=== PATIENT | female | born 1980 | race Caucasian/White ===

== ENCOUNTER 2016-03-01 17:09 | Inpatient (IN) | payer BC ==
[~2016-03-01] VITALS: Ht 170.2 cm; Wt 95.5 kg
[2016-03-01 17:51] LABS: BASOPHILS 0.3 % (0.0-2.0); EOSINOPHILS 0.4 % (0-7); HEMATOCRIT 42.9 % (36.0-48.0); HEMOGLOBIN 14.6 g/dL (12-16); IMMATURE GRANULOCYTES 0.1 % (0-5); LYMPHOCYTES 14.9 % (15-50); MCH 30.5 pg (26.0-34.0); MCV 89.6 fL (80.0-100.0); MONOCYTES 11.3 % (2-11); PLATELET COUNT 149 10x3/uL (130-400); RBC 4.79 10x6/uL (4.00-5.40); RDW 12.8 % (11.5-14.5); WBC 6.8 10x3/uL (4.8-10.8)
[2016-03-01 18:00] LABS: BILIRUBIN - TOTAL 1.62 mg/dL (0.2-1.3); CALCIUM 9.2 mg/dL (8.5-10.1); CARBON DIOXIDE 27.9 mmol/L (21.0-32.0); CREATININE - SERUM 1.1 mg/dL (0.6-1.3); POTASSIUM - SERUM 3.9 mmol/L (3.5-5.1); PROTEIN - SERUM 7.5 g/dL (6.4-8.2)
[2016-03-01 18:09] LABS: HCG SERUM NEGATIVE (NEGATIVE)
[2016-03-01 18:11] LABS: APPEARANCE CLEAR (CLEAR); BILIRUBIN NEGATIVE (NEGATIVE); COLOR DK YELLOW (YELLOW); GLUCOSE NEGATIVE (NEGATIVE); KETONE NEGATIVE (NEGATIVE); LEUKOCYTE ESTERASE NEGATIVE (NEGATIVE); NITRITE NEGATIVE (NEGATIVE); PROTEIN TRACE mg/dL (NEGATIVE); SPECIFIC GRAVITY 1.015 (1.005-1.020); UROBILINOGEN NORMAL (NORMAL)
[2016-03-01 23:07] VITALS: BP 112/67; Ht 170.2 cm; Wt 95.5 kg
--- NOTE | 2016-03-01 23:44 | NUR ---
RESTING WITH EYES CLOSED, RESP WITH EASE, IV INFUSING WITHOUT DIFFICULTY, VISITOR IN ROOM, CL IN REACH
[2016-03-02 04:00] VITALS: BP 107/69
[2016-03-02 05:51] LABS: BASOPHILS 0.2 % (0.0-2.0); EOSINOPHILS 0.6 % (0-7); HEMATOCRIT 38.7 % (36.0-48.0); IMMATURE GRANULOCYTES 0.2 % (0-5); LYMPHOCYTES 18.3 % (15-50); MCH 30.3 pg (26.0-34.0); MCHC 33.6 g/dL (31.0-37.0); MCV 90.2 fL (80.0-100.0); MEAN PLATELET VOLUME 11.6 fL (7.4-10.4); MONOCYTES 12.6 % (2-11); NEUTROPHILS 68.1 % (40-80); PLATELET COUNT 141 10x3/uL (130-400); RBC 4.29 10x6/uL (4.00-5.40); WBC 5.1 10x3/uL (4.8-10.8)
[2016-03-02 06:14] LABS: ALBUMIN 3.1 g/dL (3.4-5.0); BILIRUBIN - DIRECT 2.01 mg/dL (0.00-0.30); BILIRUBIN - INDIRECT 1.39 mg/dL (0.00-1.00); BILIRUBIN - TOTAL 3.4 mg/dL (0.2-1.3); CALCIUM 8.3 mg/dL (8.5-10.1); CARBON DIOXIDE 28.4 mmol/L (21.0-32.0); POTASSIUM - SERUM 4.4 mmol/L (3.5-5.1)
--- NOTE | 2016-03-02 08:00 | NUR ---
PT ASSESSMENT COMPLETE NPO FOR OR TODAY WITH DR PATEL FOR LAP CARISSA PROCEEDURE EXPLAINED TO PT AND CONSENTS OBTAINED. PT NPO
[2016-03-02 08:31] VITALS: BP 104/62
--- NOTE | 2016-03-02 09:32 | HP ---
PATIENT: ALY GANN MEDICAL RECORD: [id number] ACCOUNT: [id number] LOCATION:D.[id number] : [birth year] ADMISSION DATE: 03/01/16 HISTORY AND PHYSICAL EXAMINATION DATE OF ADMISSION: 03/02/2016. ADMITTING PHYSICIAN: Magnolia Patel MD CHIEF COMPLAINT: Abdominal pain. HISTORY OF PRESENT ILLNESS: Ms. Gann is a 35-year-old female who was admitted to the ER last night with a 1-day history of acute onset of right upper quadrant and epigastric abdominal pain. The patient developed sharp, stabbing right lower quadrant abdominal pain. The pain has been constant. She describes it as sharp and stabbing. Currently, it is 5/10. The pain has been constant. It fluctuates in intensity. She had a previous episode of similar abdominal pain a couple of weeks ago. She denies having any fever or chills. She had nausea and multiple episodes of vomiting. She denies any hematemesis. She describes dark celine colored urine. She denies any melena or hematochezia. PAST MEDICAL HISTORY: None. PAST SURGICAL HISTORY: times 2. ALLERGIES: MORPHINE. HOME MEDICATIONS: None. SOCIAL HISTORY: She is a former smoker. She drinks alcohol socially. FAMILY HISTORY: She denies any family history of cancer or cardiovascular disease. REVIEW OF SYSTEMS: A 12-point review of systems was obtained. Pertinent positive and negative as per the HPI. PHYSICAL EXAMINATION: VITAL SIGNS: Temperature 98.2, pulse ____, respirations 18, blood pressure 107/69, satting 97% on room air. GENERAL: This is a well-developed and well-nourished female in moderate distress. EYES: Extraocular muscles are intact. Sclerae are anicteric. EARS, NOSE AND THROAT: Mucous membranes dry. Normal dentition. CARDIOVASCULAR: Normal sinus rhythm. PULMONARY: She is clear to auscultation bilaterally. ABDOMEN: Soft and nondistended. She has got focal tenderness in the right lower quadrant with guarding and rebound. No hernia defects. SKIN: Warm and dry with normal turgor. EXTREMITIES: A 2+ pulses. No peripheral edema. EXTREMITIES: She is neurovascularly intact. NEUROLOGIC: She has a GCS of 15 with no focal deficits. LABORATORY DATA: Reviewed. Please see electronic medical record for a full set of laboratory data. Labs are significant for a transaminitis and jaundice. HISTORY AND PHYSICAL [id number] ALY GANN IMAGING: Gallbladder ultrasound images personally reviewed, which showed mild dilatation of the common bile duct as well as multiple shadowing stones. IMPRESSION: A 35-year-old female with choledocholithiasis, jaundice and transaminitis. PLAN: 1. Admit to med/surg Dr. Patel 2. IV fluid resuscitation. 3. N.p.o. 4. IV fluid resuscitation. 5. IV antibiotics. 6. We will consult gastroenterology, Dr. Dawson, for possible ERCP, repeat serial abdominal exams, laparoscopic cholecystectomy during this admission. TRANSINT:[id number] Voice Confirmation ID: [id number] DOCUMENT ID: [id number] MAGNOLIA PATEL MD at 0932 CC: [id number] DICTATION DATE: 03/02/16 0838 RAG COLLECTOR: 03/02/16 0854 ADM IN [facility] [address] [place] [address]
--- NOTE | 2016-03-02 10:53 | NUR ---
PT SEEN FOR TOW MOTOR DRIVER NOTE. NO COMPLAINTS OF PAIN AT PRESENT 3/10 ON SCALE. WAS FOR LAP CHOLY TODAY BUT HAS BEEN CANCELLED. REMAINS NPO AT MOMENT DUE TO NO ORDERS.
--- NOTE | 2016-03-02 11:00 | NUR ---
PT NOTIFIED PER DR PATEL THAT SHE WAS NOT GOING TO OR TODAY CONSULT FOR GI FOR ERCP IN AM.
[2016-03-02 12:59] VITALS: BP 101/63
--- NOTE | 2016-03-02 15:36 | NUR ---
Patient Name: ALY WOODY Admission Status: ER Accout number: [id number] Admission Date: 03-01-2016 : 1980 Admission Diagnosis: Attending: ARLINE Current LOS: 1 Anticipated DC Date: 03-04-2016 Planned Disposition: Home or Self Care Primary Insurance: [place] [employer] O Discharge Planning Comments: CM MET WITH PATIENT REGARDING D/C NEEDS AND PLANS. PATIENT STATES SHE LIVES W/HER LIZ CONTRERAS AND HE OR HER MOTHER (KASHMIR) WILL PICK HER UP AT DISCHARGE. PATIENT STATED THERE ARE NO STEPS OR STAIRS AT HER HOME. PATIENT IS INDEPENDENT WITH HER CARE AND HAS NO DME AT HOME. PATIENTS PCP IS DR. ZAVALETA AND PHARMACY IS [facility]. PATIENT HAS NEVER HAD HOME HEALTH AND IS REFUSING IT. CM WILL CONTINUE TO FOLLOW PATIENT WITH D/C NEEDS AND PLANS. PCP DR. ZAVALETA [facility]- [phone] DIANE (LIZ) [phone] KASHMIR (MOM) [phone] Telesales Manager: Alma Rivera Is the patient Alert and Oriented? Yes 0 * How many steps to enter\exit or inside your home? 0 0 * PCP DR. ZAVALETA 0 * Pharmacy [facility] 0 * Preadmission Environment Home with Family 0 * ADLs Independent 0 * Equipment None 0 * List name and contact numbers for known caregivers / representatives who currently or will assist patient after discharge: DIANE AGUILAR (LIZ) [phone] KASHMIR (MOM) [phone] * Community resources currently utilized None 0 * Additional services required to return to the preadmission environment? Yes 0 * Can the patient safely return to the preadmission environment? Yes 0 * Has this patient been hospitalized within the prior 30 days at any hospital? No 0 Grand Total: 0
[2016-03-02 16:29] VITALS: BP 94/59
[2016-03-02 19:00] VITALS: BP 100/66
--- NOTE | 2016-03-02 20:45 | NUR ---
ASSESSMENT COMPLETED, NO ACUTE DISTRESS NOTED, DENIES NEEDS AT THIS TIME, VISITOR AT BEDSIDE, SR'S UP X2, CL IN REACH, WILL MONITOR
--- NOTE | 2016-03-02 21:33 | NUR ---
ERIC ALLEN PER STEVAN, OTONIEL WELL, CL IN REACH
[2016-03-03] VITALS (7 sets, daily range): BP systolic 104–113; BP diastolic 59–74
--- NOTE | 2016-03-03 03:40 | NUR ---
MEDS PER MAR, OTONIEL WELL, ACADEMIC COACH INFUSING, PT AND VISITOR RESTING WITH EYES CLOSED, RESP WITH EASE, CL IN REACH
[2016-03-03 06:47] LABS: BASOPHILS 0.3 % (0.0-2.0); EOSINOPHILS 2.2 % (0-7); HEMATOCRIT 37.6 % (36.0-48.0); HEMOGLOBIN 12.2 g/dL (12-16); LYMPHOCYTES 33.2 % (15-50); MCH 30.1 pg (26.0-34.0); MCHC 32.4 g/dL (31.0-37.0); MEAN PLATELET VOLUME 10.9 fL (7.4-10.4); MONOCYTES 9.5 % (2-11); NEUTROPHILS 54.8 % (40-80); RBC 4.05 10x6/uL (4.00-5.40); RDW 13.3 % (11.5-14.5)
[2016-03-03 07:14] LABS: ALBUMIN 2.9 g/dL (3.4-5.0); ANION GAP 9.8 mmol/L (8-16); BILIRUBIN - DIRECT 1.79 mg/dL (0.00-0.30); BILIRUBIN - INDIRECT 1.25 mg/dL (0.00-1.00); BILIRUBIN - TOTAL 3.04 mg/dL (0.2-1.3); CALCIUM 8.9 mg/dL (8.5-10.1); CARBON DIOXIDE 28.5 mmol/L (21.0-32.0); MAGNESIUM - SERUM 1.7 mg/dL (1.8-2.4); MCV 92.8 fL (80.0-100.0); PLATELET COUNT 110 10x3/uL (130-400); POTASSIUM - SERUM 4.3 mmol/L (3.5-5.1); PROTEIN - SERUM 5.8 g/dL (6.4-8.2); WBC 3.7 10x3/uL (4.8-10.8)
--- NOTE | 2016-03-03 13:42 | NUR ---
PATIENT BACK FROM PROCEDURE. PATIENT AMBULATED TO THE BATHROOM, GAIT STEADY. PATIENT VOIDED. BACK TO BED. RESPIRATIONS ARE EVEN AND UNLABORED ON ROOM AIR. FAMILY AT BEDSIDE.
[2016-03-04 04:00] VITALS: BP 100/59
[2016-03-04 05:52] LABS: BASOPHILS 0.3 % (0.0-2.0); HEMATOCRIT 35.7 % (36.0-48.0); HEMOGLOBIN 11.6 g/dL (12-16); IMMATURE GRANULOCYTES 0.3 % (0-5); LYMPHOCYTES 38.5 % (15-50); MCH 30.1 pg (26.0-34.0); MCHC 32.5 g/dL (31.0-37.0); MCV 92.5 fL (80.0-100.0); MEAN PLATELET VOLUME 11.5 fL (7.4-10.4); MONOCYTES 12.9 % (2-11); PLATELET COUNT 110 10x3/uL (130-400); RBC 3.86 10x6/uL (4.00-5.40); RDW 13.1 % (11.5-14.5); WBC 3.6 10x3/uL (4.8-10.8)
[2016-03-04 06:19] LABS: AMYLASE - SERUM 147 U/L (25-115); CALC OSMOLALITY 281 mosm/kg (275-300); CALCIUM 8.6 mg/dL (8.5-10.1); CARBON DIOXIDE 28.8 mmol/L (21.0-32.0); CHLORIDE - SERUM 109 mmol/L (98-107); CREATININE - SERUM 0.9 mg/dL (0.6-1.3); GLUCOSE 99 mg/dL (74-106); LIPASE 496 U/L (73-393); MAGNESIUM - SERUM 1.6 mg/dL (1.8-2.4); POTASSIUM - SERUM 4.2 mmol/L (3.5-5.1); SODIUM 143 mmol/L (136-145); UREA NITROGEN 4 mg/dL (7-18); eGFR NON AFRICAN AMERICAN 76 mL/min (90-120)
--- NOTE | 2016-03-04 08:00 | NUR ---
PT ASSESSMENT COMPLETE PT NPO AFTER MN FOR OR TODAY WITH DR PATEL FOR LAP CARISSA HIBICLENSE BATH THIS AM AND PRE OP MEDS GIVEN AT THIS TIME. LUNGS CTA BILAT BSA X 4 QUADS PIV TO RIGHT FORARM PATENT TO IVF PER ORDER.
[2016-03-04] MEDS ORDERED: HYDROCODON-ACE1 EAC7 PO (09:25)
--- NOTE | 2016-03-04 09:30 | NUR ---
0853 BOTH ARMS NOTED TO HAVING SOME REDNESS ON FOREARMS UNDERNEATH SIDE RIGHT WORSE THAN LEFT RECHECKED IN RECOVERY ONE LEFT ARM BETTER, SLIGHT PINKNESS BUT RIGHT ARM STILL PINKISH RED NOTIFIED ANESTHESIA AND REPORTED TO RECOVERY ROOM NURSE WELL, ASA.
--- NOTE | 2016-03-04 10:08 | OP ---
PATIENT NAME: ALY WOODY MEDICAL RECORD: [id number] :82 LOCATION:D[facility] ADMISSION DATE:03/01/16 SURGEON: MAGNOLIA RIVAS MD DATE OF OPERATION: 03/04/2016 SURGEON: Magnolia Rivas MD PREOPERATIVE DIAGNOSES: 1. Cholelithiasis. 2. Choledocholithiasis. 3. Jaundice. POSTOPERATIVE DIAGNOSES: 1. Cholelithiasis. 2. Choledocholithiasis. 3. Jaundice. PROCEDURE PERFORMED: Laparoscopic cholecystectomy. ANESTHESIA: General. COMPLICATIONS: None. SPECIMENS: Gallbladder. Case was clean contaminated. ESTIMATED BLOOD LOSS: 30 cc. OPERATIVE COURSE: After consent was obtained, the patient was taken to the operating room and placed in a supine position on the operating table. Next, general anesthesia was given via endotracheal intubation after a timeout was taken to confirm the correct patient and procedure. The abdomen was prepped and draped in typical sterile fashion. Local anesthetic was injected just above the umbilicus. A stab incision was made with 11-blade scalpel. Using a 5-mm bladeless optical trocar, the abdomen was entered under direct laparoscopic vision. Adequate pneumoperitoneum was achieved. The abdominal cavity was inspected. No evidence of bowel injury. No evidence of bleeding. The patient was placed in the steep reverse Trendelenburg position. All remaining trocars were placed after the administration of local anesthetic. Two 5-mm trocars in the right upper quadrant and 11-mm trocar in the subxiphoid position. The fundus of the gallbladder was grasped and retracted cephalad. The infundibulum was grasped and retracted laterally. The peritoneum was incised using electrocautery. Blunt dissection was performed with the [place] dissector until the critical view was obtained. Cystic duct lateral, cystic artery medial, liver in the posterior window. Three clips were placed in the proximal cystic artery. Three clips were placed in the proximal cystic duct, 1 clip distal. The duct and artery were transected with laparoscopic Metzenbaum scissors. The remaining portion of the gallbladder was then dissected off the liver bed using electrocautery. Once complete, the gallbladder was placed into an EndoCatch bag and removed through the 11-mm trocar and sent for permanent pathology. The operative field was copiously irrigated and suctioned. Careful attention was paid to hemostasis, which on the liver bed, which was obtained using electrocautery. The operative field was again irrigated and suctioned. There are three clips [address] place in the cystic duct. Three clips [address] place in the OPERATIVE REPORT [id number] ALY WOODY cystic artery. At this time, all remaining fluid was irrigated from the abdomen. The abdominal cavity was inspected. There was no evidence of bowel injury. No evidence of bleeding or bile leak. At this time, all remaining instruments removed. Trocars were removed. Abdomen was desufflated. The skin was closed with 4-0 Monocryl, Mastisol and Steri-Strips. At the end of the case, all needle and instrument counts were correct. No complications occurred. The patient was extubated and transferred to the PACU in stable condition. TRANSINT:[id number] Voice Confirmation ID: [id number] DOCUMENT ID: [id number] MAGNOLIA RIVAS MD at 1008 CC: [id number] DICTATION DATE: 03/04/16923 MATERIAL DAMAGE APPRAISER: 03/04/16 0945 ADM IN [facility] [address] [place] [id number]
--- NOTE | 2016-03-04 10:19 | NUR ---
PT VOIDED 200ML INTO BEDPAN IN PACU
[2016-03-04 10:28] VITALS: BP 117/75
--- NOTE | 2016-03-04 10:32 | NUR ---
RECIEVED TO ROOM PER BED FROM RECOVERY ROOM AWAKE AND ALERT WITH SOME DROWSINESS NOTED VITAL SIGNS WITH IN NORMAL LIMITS FAMILY AT SIDE.
[2016-03-04 10:41] LABS: ALBUMIN 2.8 g/dL (3.4-5.0); BILIRUBIN - DIRECT 0.61 mg/dL (0.00-0.30); BILIRUBIN - INDIRECT 0.51 mg/dL (0.00-1.00); BILIRUBIN - TOTAL 1.12 mg/dL (0.2-1.3); PROTEIN - SERUM 5.2 g/dL (6.4-8.2)
--- NOTE | 2016-03-04 11:02 | NUR ---
CM REASSESSMENT NOTE: PATIENT HAD A LAP CARISSA TODAY AND WILL DISCHARGE THIS AFTERNOON. PATIENTS FAMILY AT BEDSIDE AND HAS NO NEEDS FOR DISCHARGE. FAMILY WILL BE DRIVING PATIENT HOME.
--- NOTE | 2016-03-04 12:30 | NUR ---
AWAKE AND SIPPING ON ICE WATER NO NAUSEA NOTED FAMILY AT BEDSIDE.
--- NOTE | 2016-03-04 13:44 | NUR ---
NO ACUTE DISTRESS NOTED DENIES PAIN OR DISCOMFORT AT THIS TIME NO COMPLAINTS OF PAIN.
--- NOTE | 2016-03-04 15:02 | NUR ---
PT DISCHARGED AT THIS TIME VIA WHEELCHAIR TO PRIVATE CAR. STATED UNDERSTANDING OF DISCHARGE INSTRUCTIONS PIV D/C WITH TIP INTACT
--- NOTE | 2016-03-11 19:43 | PRO ---
PATIENT:ALY WOODY MEDICAL RECORD: [id number] : 82 LOCATION:D[id number] ADMISSION DATE: 03/01/16 PROCEDURE PERFORMED BY: EBONI HERNÁNDEZ MD DATE OF PROCEDURE: 03/03/2016 COORDINATE MEASURING EQUIPMENT OPERATOR: Eboni Hernández MD PROCEDURE: ERCP for stone removed via sphincterotomy and balloon pull-through. INDICATION: The patient is a 35-year-old white female who was admitted with symptomatic gallbladder disease or gallstones on ultrasound, small common duct 6.5 mm and a bilirubin of 3. This is not improved with bowel rest and IV fluids. She is now for ERCP to look for small common duct stone. PREMEDICATION: Taper anesthesia. INSTRUMENT: Olympus video ERCP scope. FINDINGS: The endoscope was passed through the oropharynx to the second portion of the duodenum without difficulty. The esophagus, stomach and duodenum were unremarkable. The major papilla was identified and was unremarkable. Initially, a pancreatogram was obtained and was normal. I then redirected the catheter and a cholangiogram was obtained which revealed a 6-mm common bile duct, the gallbladder did fill with contrast and was full of stones. I did not see an obvious filling defect, but there was a questionable one. In light of this and her lab work, I decided to go ahead and perform a small to moderate-sized sphincterotomy over a wire and then pulled an 8.5-mm balloon down the common duct 3 times. There was a questionable stone that was removed on the first pass. The final 2 passes did not show anything. Final cholangiogram was normal. The patient tolerated the procedure well without complication. IMPRESSION: 1. Questionable tiny common duct stones, now status post removal via sphincterotomy and balloon pull-through. 2. A gallbladder full of stones. 3. Otherwise, normal ERCP. I suspect some of her bilirubin rises simply due to cholecystitis. RECOMMENDATIONS: 1. Continue antibiotics. 2. Proceed with laparoscopic cholecystectomy. TRANSINT:[id number] Voice Confirmation ID: [id number] DOCUMENT ID: [id number] EBONI HERNÁNDEZ MD at 1943 CC: MAGNOLIA PATEL MD [id number] DICTATION DATE: 03/03/16 1253 SMALL BUSINESS SALES REPRESENTATIVE: 03/03/16 2144 DIS IN 03/04/16 [facility] [address] [place] [address]
--- NOTE | 2016-03-11 19:43 | CN ---
PATIENT NAME:ALY WOODY MEDICAL RECORD: [id number] : 82 LOCATION:D[facility] ADMIT DATE: 03/01/16 ACCOUNT: [id number] CONSULTING PHYSICIAN: EBONI HERNANDEZ MD REFERRING PHYSICIAN: MAGNOLIA PATEL MD DATE OF CONSULTATION: 03/03/2016 Gastroenterology Consultation REFERRING PHYSICIAN: Magnolia Patel MD HISTORY OF PRESENT ILLNESS: The patient is a 35-year-old white female who was admitted with biliary colic. Workup revealed mildly elevated liver enzymes, and ultrasound revealed stones in her gallbladder and a 6.5 mm common bile duct. Her bilirubin has remained at around 3 and therefore I was asked to see the patient for possible ERCP. PAST MEDICAL HISTORY: As above. ALLERGIES: MORPHINE. SOCIAL HISTORY: Drinks alcohol on social basis. She is a former smoker. REVIEW OF SYSTEMS: Noncontributory other than HPI. PHYSICAL EXAMINATION: GENERAL: Reveals a well-developed white female in minimal distress. VITAL SIGNS: Stable. She is afebrile. CHEST: Clear. HEART: Regular rate and rhythm. ABDOMEN: Soft with mild tenderness in the epigastric area. EXTREMITIES: No edema. LABORATORY DATA: Reveals white cell count of 5000, hematocrit of 38, MCV of 90, and platelet count 140,000. Electrolytes are normal. BUN 5, creatinine 1. Total bilirubin 3, direct bilirubin 1.8, AST 300, ALT 946, and alkaline phosphatase 130. Amylase and lipase are normal. IMAGING: Ultrasound is as above. IMPRESSION: Cholecystitis with apparent common bile duct stone. RECOMMENDATION: 1. Empiric antibiotics. 2. ERCP. 3. Cholecystectomy afterwards. TRANSINT:[id number] Voice Confirmation ID: [id number] DOCUMENT ID: [id number] CONSULT REPORT [id number] ALY WOODY EBONI HERNANDEZ MD at 1943 CC: MAGNOLIA PATEL MD [id number] DICTATION DATE: 03/03/16 1232 PATIENT CARE SECRETARY: 03/03/16 1323 DIS IN 03/04/16 [facility] [address] [place] [address]
== END 2016-03-04 15:03 | disposition home or self-care (01) | DRG 419 ==
LOC: D.ER 17:09 → D.MS 20:24
PROVIDERS: Emergency Medicine; ADMIT Surgery
DX: K80.70 Calculus of gallbladder and bile duct without cholecystitis without obstruction (principal); R74.0 Nonspecific elevation of levels of transaminase and lactic acid dehydrogenase [LDH]; Z87.891 Personal history of nicotine dependence